=== PATIENT | male | born 2000 | race Caucasian/White ===

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

== ENCOUNTER 2019-01-19 18:20 | Emergency (ER) | payer BC ==
[2019-01-19] MEDS ORDERED: NS 1,000 ML IV ONE ×2 (19:20→19:29)
--- NOTE | 2019-01-19 19:21 | EDPHY ---
H & P Time Seen by Provider: 01/19/19 19:00 HPI/ROS: Chief complaint. Cough, fever HPI. 18-year-old male URI symptoms for 3-4 days. He has had fever. Vomiting for 2-3 days. Cough productive yellow sputum. No abdominal pain. He has a fine rash on his abdomen. He has recent travel to [place] and sick contacts in the [place]. No abdominal pain. Did last Advil was at 11: 00 a.m.. He also has sore throat. ROS 10 systems were reviewed and negative with the exception of the elements mentioned in the history of present illness Past Medical/Surgical History: Hernia repair, attention deficit hyperactivity disorder Social History: Single, daily smoker, no alcohol Smoking Status: Current some day smoker Physical Exam: General Appearance: Alert well-developed male moderate distress initial temperature 38.1 degrees with heart rate 125 Eyes: Pupils equal and round no pallor or injection. ENT, tympanic membranes normal. Pharynx injected with exudate. Mucous membranes somewhat dry Respiratory: There are no retractions, lungs are clear to auscultation. Cardiovascular: Regular rate and rhythm. Gastrointestinal: Abdomen is soft and nontender, no masses, bowel sounds normal. Neurological: Awake and alert, sensory and motor exams grossly normal. Skin: Fine faint erythematous rash on the abdomen. No petechiae Musculoskeletal: Neck is supple nontender. Extremities symmetrical, full range of motion. Psychiatric: Patient is oriented X 3, there is no agitation. Constitutional: Initial Vital Signs Temperature (C) 38.1 C 01/19/19 18:22 Heart Rate 125 H 01/19/19 18:22 Respiratory Rate 18 01/19/19 18:22 Blood Pressure 133/70 H 01/19/19 18:22 O2 Sat (%) 94 01/19/19 18:22 O2 Delivery Mode Room Air Allergies/Adverse Reactions: No Known Allergies Allergy (Unverified 07/13/17 18:56) Home Medications: Medication Instructions Recorded Amoxicillin/Clavulanate Pot 875 mg PO BID #20 tab 07/13/17 [Augmentin 875 MG TAB (*)] Ritalin 10mg (*) 07/13/17 Penicillin V Potassium [Penicillin 500 mg PO TID #21 tab 01/19/19 VK] Medical Decision Making - Diagnostics Imaging Results: Imaging Impressions Chest X-Ray 01/19/19 19:20 Impression: Normal chest x-ray. Chest x-ray interpreted by me is normal Procedures: IV normal saline 2 L. Zofran. Ibuprofen and Tylenol in the ED. Pen VK orally in the ED ED Course/Re-evaluation: Re-evaluation patient is stable and feeling better. Taking oral fluids. He and I discussed imaging and lab results. We discussed treatment plan including criteria for return importance follow-up further evaluation. He expresses understanding and agreement Differential Diagnosis: I considered pneumonia, influenza, strep pharyngitis, mono - Data Points Laboratory Results: Laboratory Results 01/19/19 18:56 01/19/19 18:56 01/19/19 01/19/19 01/19/19 19:42 19:30 18:56 WBC RBC Hgb Hct MCV MCH MCHC RDW Plt Count MPV Neut % (Auto) Lymph % (Auto) Ballard % (Auto) Eos % (Auto) Baso % (Auto) Nucleat RBC Rel Count Absolute Neuts (auto) Absolute Lymphs (auto) Absolute Monos (auto) Absolute Eos (auto) Absolute Basos (auto) Absolute Nucleated RBC Immature Gran % Immature Gran # RBC/WBC/PLT Morphology Platelet Estimate Sodium Potassium Chloride Carbon Dioxide Anion Gap BUN Creatinine Estimated GFR Glucose Calcium Nasal Influenza A PCR Pending Nasal Influenza B PCR Pending Monoscreen NEGATIVE (NEGATIVE) RSV (PCR) Pending Group A Strep Screen POSITIVE H (NEGATIVE) 01/19/19 01/19/19 18:56 18:56 WBC 10.17 10^3/uL H 10^3/uL (3.80-9.50) RBC 4.70 10^6/uL 10^6/uL (4.40-6.38) Hgb 14.2 g/dL g/dL (13.7-17.5) Hct 41.7 % % (40.0-51.0) MCV 88.7 fL fL (81.5-99.8) MCH 30.2 pg pg (27.9-34.1) MCHC 34.1 g/dL g/dL (32.4-36.7) RDW 11.7 % % (11.5-15.2) Plt Count 241 10^3/uL 10^3/uL (150-400) MPV 10.0 fL fL (8.7-11.7) Neut % (Auto) 73.0 % % (39.3-74.2) Lymph % (Auto) 7.9 % L % (15.0-45.0) Ballard % (Auto) 18.2 % H % (4.5-13.0) Eos % (Auto) 0.2 % L % (0.6-7.6) Baso % (Auto) 0.3 % % (0.3-1.7) Nucleat RBC Rel Count 0.0 % % (0.0-0.2) Absolute Neuts (auto) 7.42 10^3/uL H 10^3/uL (1.70-6.50) Absolute Lymphs (auto) 0.80 10^3/uL L 10^3/uL (1.00-3.00) Absolute Monos (auto) 1.85 10^3/uL H 10^3/uL (0.30-0.80) Absolute Eos (auto) 0.02 10^3/uL L 10^3/uL (0.03-0.40) Absolute Basos (auto) 0.03 10^3/uL 10^3/uL (0.02-0.10) Absolute Nucleated RBC 0.00 10^3/uL 10^3/uL (0-0.01) Immature Gran % 0.4 % % (0.0-1.1) Immature Gran # 0.04 10^3/uL 10^3/uL (0.00-0.10) RBC/WBC/PLT Morphology TNP Platelet Estimate TNP Sodium 132 mEq/L L mEq/L (135-145) Potassium 4.2 mEq/L mEq/L (3.5-5.2) Chloride 94 mEq/L L mEq/L (97-110) Carbon Dioxide 25 mEq/l mEq/l (22-31) Anion Gap 13 mEq/L mEq/L (6-14) BUN 11 mg/dL mg/dL (7-23) Creatinine 0.8 mg/dL mg/dL (0.7-1.3) Estimated GFR > 60 Glucose 99 mg/dL mg/dL (70-100) Calcium 8.9 mg/dL mg/dL (8.5-10.4) Nasal Influenza A PCR Nasal Influenza B PCR Monoscreen RSV (PCR) Group A Strep Screen Medications Given: Discontinued Medications Acetaminophen (Tylenol) 1,000 mg PO EDNOW ONE Stop: 01/19/19 19:29 Last Admin: 01/19/19 19:40 Dose: 1,000 mg Sodium Chloride (Ns) 1,000 mls @ 0 mls/hr IV ONCE ONE; Wide Open PRN Reason: Protocol Stop: 01/19/19 19:21 Last Admin: 01/19/19 20:02 Dose: 1,000 mls Sodium Chloride (Ns) 1,000 mls @ 0 mls/hr IV ONCE ONE; Wide Open PRN Reason: Protocol Stop: 01/19/19 19:30 Last Admin: 01/19/19 19:40 Dose: 1,000 mls Ibuprofen (Motrin) 600 mg PO EDNOW ONE Stop: 01/19/19 19:29 Last Admin: 01/19/19 19:40 Dose: 600 mg Ondansetron HCl (Zofran) 4 mg IVP EDNOW ONE Stop: 01/19/19 19:29 Last Admin: 01/19/19 19:40 Dose: 4 mg Penicillin V Potassium (Pen Vk) 500 mg PO EDNOW ONE PRN Reason: Protocol Stop: 01/19/19 19:59 Last Admin: 01/19/19 20:02 Dose: 500 mg Departure - Departure Disposition: Home, Routine, Self-Care Clinical Impression: Strep pharyngitis Condition: Good Instructions: Strep Throat (ED) Additional Instructions: Frequent, small sips fluids while nauseated. Gradual diet advancement Zofran if needed for nausea and vomiting. 1 pill every 3-4 hours as needed for nausea and vomiting Penicillin for strep throat Tylenol 1000 mg every 6 hr, ibuprofen 600 mg every 6 hr as needed for fever and achiness. May alternate these every 3 hr. Return for worsening symptoms. Recheck in 2 days if not improved Referrals: NONE *PRIMARY CARE P,. [Primary Care Provider] - As per Instructions [facility] [Clinic] - 2-3 days, if not improved Prescriptions: Penicillin V Potassium [Penicillin VK] 500 mg PO TID #21 tab
[2019-01-19] MEDS ORDERED: ACETAMINOPHEN 500 MG TAB PO ONE (19:28)
[2019-01-19] MEDS ORDERED: ONDANSETRON 4 MG/2 ML VIAL IVP ONE (19:28)
[2019-01-19] MEDS ORDERED: IBUPROFEN 600 MG TAB PO ONE (19:28)
[2019-01-19 19:30] LABS: PLATELET COUNT 241 10^3/uL (150-400)
[2019-01-19] MEDS ORDERED: PENICILLIN VK 500 MG TAB PO ONE (19:58)
[2019-01-19] MEDS ORDERED: ONDANSETRON 4MG PREPACK#2 BTL TAKEHOME ONE (20:25)
[2019-01-19 20:38] VITALS: BP 132/64
== END 2019-01-19 20:37 | disposition home or self-care (01) ==
DX: J02.0 Streptococcal pharyngitis (principal); E86.9 Volume depletion, unspecified
CPT/HCPCS: 96374; J2405

== ENCOUNTER 2019-01-23 12:09 | Emergency (ER) | payer OTHER, BC ==
--- NOTE | 2019-01-23 12:38 | EDPHY ---
H & P Stated Complaint: gen rash started prior to PCN for strep x 3 days Source: Patient Exam Limitations: No limitations - Personal History Tetanus Vaccine Date: 2009 - Medical/Surgical History Hx Asthma: No Hx Chronic Respiratory Disease: No Hx Diabetes: No Hx Cardiac Disease: No Hx Renal Disease: No Hx Cirrhosis: No Hx Alcoholism: No Hx HIV/AIDS: No Hx Splenectomy or Spleen Trauma: No Other PMH: Bilateral inguinal hernia repair. ADD - Social History Smoking Status: Current some day smoker Time Seen by Provider: 01/23/19 12:32 HPI/ROS: HPI: This is a 18-year-old male who presents with Chief Complaint: Rash, epistaxis Location: Body Quality: Rash Duration: 1 week Signs and Symptoms: no fever, no nausea, no vomiting, no diarrhea, no urinary symptoms, no chest pain, no shortness of breath, no wheezing, no cough, no sore throat, no neck stiffness, no joint pain, no swollen glands, no ear pain, no rash, + nasal dryness, + bloody noses Timing: Constant Severity: Mild Context: Patient presents accompanied by mother with complaints of continued rash over the last week on his upper arms and torso. Denies it being itchy. Patient was seen in this emergency room on 01/19/2019 and had a positive strep test with negative mono, negative flu, negative chest x-ray. He was given penicillin VK which he has been compliant. Patient reports that he has had bloody discharge from his nose when he blows his nose over the last 2-3 days. Mother at bedside is requesting re-evaluation for continued rash. Patient denies any fever, neck stiffness, drooling, difficulty swallowing. Modifying Factors: Antibiotic Comment: ROS: A comprehensive 10 system review of systems is otherwise negative aside from elements mentioned in the history of present illness. MEDICAL/SURGICAL/SOCIAL HISTORY: Medical history: ADD s. Surgical history: Bilateral inguinal hernia repair Social history: Student at [employer]. Originally from [place], [place]. Tobacco user. Family history noncontributory. CONSTITUTIONAL: Extremely well-appearing young adult white male, mother at bedside, awake and alert, no obvious distress HEENT: Atraumatic and normocephalic, PERRL, EOMI. Nares patent; no rhinorrhea; no nasal mucosal edema. Tympanic membranes clear. Oropharynx clear, tonsils 1 + with no erythema, uvula midline, no exudate and moist pink mucosa. Airway patent. No lymphadenopathy. No meningismus. Cardiovascular: Normal S1/S2, regular rate, regular rhythm, without murmur rub or gallop. PULMONARY/CHEST: Symmetrical and nontender. Clear to auscultation bilaterally. Good air movement. No accessory muscle usage. ABDOMEN: Soft, nondistended, nontender, no rebound, no guarding, no peritoneal signs, no masses or organomegaly. No CVAT. EXTREMITIES: 2/2 pulses, strength 5/5, no deformities, no clubbing, no cyanosis or edema. NEUROLOGICAL: no focal neuro deficits. GCS 15. Speech clear. SKIN: Warm and dry, fine pinpoint rash on upper arms and torso that blanches with palpation. Good capillary refill. (Sangeetha Cage) Constitutional: Initial Vital Signs Temperature (C) 37.0 C 01/23/19 12:19 Heart Rate 87 01/23/19 12:19 Respiratory Rate 18 01/23/19 12:19 Blood Pressure 110/75 01/23/19 12:19 O2 Sat (%) 97 01/23/19 12:19 O2 Delivery Mode Room Air Allergies/Adverse Reactions: No Known Allergies Allergy (Unverified 01/23/19 12:25) Home Medications: Medication Instructions Recorded Penicillin V Potassium [Penicillin 500 mg PO TID #21 tab 01/19/19 VK] Medical Decision Making ED Course/Re-evaluation: Vital signs reviewed and stable upon arrival. [place] test ordered Reassured patient that rash is consistent with strep pharyngitis and scarlatina Continue to take penicillin and supportive care. I Do not believe that this is an adverse reaction to the penicillin as patient developed rash prior to starting penicillin. No signs of septal hematoma, dehydration, meningitis, sinusitis, tonsillar abscess. This patient was seen under the supervision of my secondary supervising physician. I evaluated care for this patient independently. (Sangeetha Cage) Differential Diagnosis: Differential diagnosis includes but is not limited to penicillin reaction to mononucleosis, scarlatina. (Sangeetha Cage) Other Provider: The patient was evaluated and managed by the Physician Surgery Teacher. My co- signature indicates that I have reviewed this chart and I agree with the findings and plan of care as documented. I am the secondary supervising physician. (Feldhaus,Brittaney M) - Data Points Laboratory Results: 01/23/19 12:41 Monoscreen NEGATIVE (NEGATIVE) Departure - Departure Disposition: Home, Routine, Self-Care Clinical Impression: Strep pharyngitis with scarlet fever, Nasal mucosa dry Acute streptococcal tonsillitis Qualifiers: Streptococcal tonsillitis recurrence: non-recurrent Qualified Code(s): J03.00 - Acute streptococcal tonsillitis, unspecified Condition: Good Instructions: Strep Throat (ED), Scarlet Fever (ED) Additional Instructions: Apply [id number] nasal saline spray or Vaseline into nares as needed for nasal dryness. Consume a minimum of 8-10 glasses of water or electrolyte fluid replacement drinks that include Gatorade, Powerade, Pedialyte. Continue to take antibiotic until complete. Referrals: Livia Oconnell MD [Medical Doctor] - As per Instructions
[2019-01-23 13:39] VITALS: BP 114/69
== END 2019-01-23 13:39 | disposition home or self-care (01) ==
DX: J03.00 Acute streptococcal tonsillitis, unspecified (principal); A38.9 Scarlet fever, uncomplicated; R21 Rash and other nonspecific skin eruption